=== PATIENT | female | born 1975 | race Caucasian/White ===

== ENCOUNTER → 2017-12-12 | Outpatient (CLI) | payer BC ==
[~2017-12-12] MED LIST: IOHEXOL 300 MG/ML 100ML VIAL. IV
== END | disposition home or self-care (01) ==
LOC: CT 12:06
DX: J18.1 Lobar pneumonia, unspecified organism (principal); J90 Pleural effusion, not elsewhere classified
CPT/HCPCS: 71275

== ENCOUNTER 2017-12-13 06:51 | Inpatient (IN) | payer BC ==
[2017-12-13 07:27] LABS: ADD MAN DIFF? NO
[2017-12-13 07:29] LABS: BASO % 0 % (0-3); EOS % 0 % (0-3); HEMATOCRIT 27.5 % (36.0-47.0); HEMOGLOBIN 8.7 g/dL (12.0-15.5); LYMPH # 1.3 x10^3/uL (1.0-4.8); LYMPH % 12 % (24-48); MEAN CORPUSCULAR HEMOGLOBIN 24 pg (25-35); MEAN CORPUSCULAR HGB CONC 32 g/dL (31-37); MEAN CORPUSCULAR VOLUME 74 fL (79-100); MONO # 0.8 x10^3/uL (0.0-1.1); MONO % 7 % (0-9); NEUT # 8.6 x10^3uL (1.8-7.7); NEUT % 81 % (31-73); PLATELET COUNT 796 x10^3/uL (140-400); RED BLOOD COUNT 3.72 x10^6/uL (3.50-5.40); RED CELL DISTRIBUTION WIDTH 15.7 % (11.5-14.5); WHITE BLOOD COUNT 10.8 x10^3/uL (4.0-11.0)
[2017-12-13 07:40] LABS: INR 1.3 (0.8-1.1); PROTHROMBIN TIME PATIENT 15.7 SEC (11.7-14.0)
[2017-12-13] MEDS ORDERED: LIDOCAINE WITH 8.4% SOD BICARB 3 ML DISP.SYRIN. ×2 (08:03→09:06)
[2017-12-13] MEDS ORDERED: fentaNYL PF VIAL 100 MCG/2 ML VIAL ×2 (08:24→09:07)
[2017-12-13] MEDS: fentaNYL PF VIAL 100 MCG/2 ML VIAL IV ×2 (08:30→09:30)
[2017-12-13] MEDS: LIDOCAINE WITH 8.4% SOD BICARB 3 ML DISP.SYRIN. IJ ×2 (09:00→09:30)
[2017-12-13] MEDS ORDERED: MIDAZOLAM HCL/PF 2 MG/2 ML VIAL. (09:07)
[2017-12-13] MEDS: MIDAZOLAM HCL/PF 2 MG/2 ML VIAL. IV (09:30)
[2017-12-13 09:52] LABS: PH,BODY FLUID 6.64
[2017-12-13] MEDS: STERILE WATER IV (12:45)
[2017-12-13] MEDS: ALTEPLASE IV (12:45)
[2017-12-13] MEDS ORDERED: fentaNYL PF VIAL 100 MCG/2 ML VIAL IV (13:00)
[2017-12-13] MEDS ORDERED: traMADol 50 MG TABLET PO (13:45)
[2017-12-13] MEDS ORDERED: ACETAMINOPHEN 325 MG TABLET. PO (13:45)
[2017-12-13] MEDS ORDERED: hydrALAZINE 20 MG/ML VIAL. IVP (13:45)
[2017-12-13] MEDS ORDERED: MORPHINE SULFATE 4 MG/ML DISP.SYRIN. IV (13:45)
[2017-12-13] MEDS ORDERED: VANCOMYCIN 1.75 GM in IV DEXTROSE 5% 500 ML IV (13:45)
[2017-12-13] MEDS ORDERED: VANCOMYCIN PER PHARMACY MC (13:45)
[2017-12-13] MEDS ORDERED: ONDANSETRON PF 4 MG/2 ML VIAL. IV (13:45)
[2017-12-13] MEDS: KETOROLAC 15 MG/ML VIAL. IV ×3 (14:00→20:50)
[2017-12-13] MEDS ORDERED: VANCOMYCIN 2 GM in IV DEXTROSE 5 %-0.2 % NACL 500 ML IV (14:00)
[2017-12-13] MEDS: HYDROcodone/APAP 5/325MG 1 TAB TABLET PO (14:15)
[2017-12-13] MEDS: CETIRIZINE HCL 10 MG TABLET. PO (16:00)
[2017-12-13] MEDS ORDERED: ALBUTEROL SULFATE 2.5 MG/3 ML NEBU. NEB (16:00)
[2017-12-13] MEDS: DOCUSATE SODIUM 100 MG CAPSULE. PO (20:49)
[2017-12-13] MEDS: SERTRALINE 50 MG TABLET. PO (20:49)
[2017-12-13] MEDS: GABAPENTIN 400 MG CAPSULE. PO (20:49)
[2017-12-13] MEDS: oxyCODONE/APAP 5/325 1 TAB TABLET PO (20:51)
[2017-12-13] MEDS: HEPARIN PF for SUB-Q USE 5,000 UNIT/0.5 ML VIAL. SQ (22:36)
[2017-12-14 03:32] LABS: ADD MAN DIFF? NO
[2017-12-14 04:24] LABS: BASO % 0 % (0-3); EOS # 0.1 x10^3/uL (0.0-0.7); EOS % 1 % (0-3); HEMATOCRIT 25.9 % (36.0-47.0); HEMOGLOBIN 8.2 g/dL (12.0-15.5); LYMPH # 1.4 x10^3/uL (1.0-4.8); LYMPH % 18 % (24-48); MEAN CORPUSCULAR HEMOGLOBIN 24 pg (25-35); MEAN CORPUSCULAR HGB CONC 32 g/dL (31-37); MEAN CORPUSCULAR VOLUME 74 fL (79-100); MONO # 0.8 x10^3/uL (0.0-1.1); MONO % 10 % (0-9); NEUT # 5.5 x10^3uL (1.8-7.7); NEUT % 70 % (31-73); PLATELET COUNT 677 x10^3/uL (140-400); RED BLOOD COUNT 3.48 x10^6/uL (3.50-5.40); RED CELL DISTRIBUTION WIDTH 15.6 % (11.5-14.5); WHITE BLOOD COUNT 7.8 x10^3/uL (4.0-11.0)
[2017-12-14 04:58] LABS: ANION GAP 6 (6-14); BLOOD UREA NITROGEN 8 mg/dL (7-20); CALCIUM 9.2 mg/dL (8.5-10.1); CARBON DIOXIDE 29 mmol/L (21-32); CHLORIDE 101 mmol/L (98-107); CREATININE 0.6 mg/dL (0.6-1.0); GFR 108.6; GLUCOSE 103 mg/dL (70-99); POTASSIUM 4.2 mmol/L (3.5-5.1); SODIUM 136 mmol/L (136-145)
[2017-12-14] MEDS: KETOROLAC 15 MG/ML VIAL. IV ×3 (06:27→21:05)
[2017-12-14] MEDS: HEPARIN PF for SUB-Q USE 5,000 UNIT/0.5 ML VIAL. SQ ×3 (06:38→21:12)
[2017-12-14] MEDS: HYDROcodone/APAP 5/325MG 1 TAB TABLET PO ×3 (06:39→14:42)
[2017-12-14] MEDS: GADOBUTROL 7.5 MMOL/7.5 ML VIAL IV (10:03)
[2017-12-14] MEDS: CETIRIZINE HCL 10 MG TABLET. PO (10:28)
[2017-12-14] MEDS: ALTEPLASE IV (11:15)
[2017-12-14] MEDS: STERILE WATER IV (11:15)
[2017-12-14 13:20] LABS: BODY FLUID LDH 11426 IU/L (.)
[2017-12-14 13:20] LABS: BODY FLUID GLUCOSE <2 mg/dL (.)
[2017-12-14] MEDS ORDERED: cefTRIAXone SODIUM 2 GM in IV DEXTROSE 5% 100 ML IV (15:30)
[2017-12-14 16:12] LABS: ALBUMIN 1.9 g/dL (3.4-5.0); ALK PHOS 149 U/L (46-116); ALT (SGPT) 11 U/L (14-59); AST (SGOT) 10 U/L (15-37); DIRECT BILIRUBIN < 0.1 mg/dL (0.0-0.2); TOTAL BILIRUBIN 0.2 mg/dL (0.2-1.0); TOTAL PROTEIN 6.4 g/dL (6.4-8.2)
[2017-12-14 17:13] LABS: SEDIMENTATION RATE 117 (0-25)
[2017-12-14] MEDS: cefTRIAXone IV Push 2 GM VIAL. IVP (17:21)
[2017-12-14] MEDS: GABAPENTIN 400 MG CAPSULE. PO (21:03)
[2017-12-14] MEDS: SERTRALINE 50 MG TABLET. PO (21:03)
[2017-12-14] MEDS: DOCUSATE SODIUM 100 MG CAPSULE. PO (21:03)
[2017-12-14] MEDS: LACTOBACILLUS RHAMNOSUS GG 1 CAPSULE. PO (21:04)
[2017-12-14] MEDS: oxyCODONE/APAP 5/325 1 TAB TABLET PO (21:04)
[2017-12-15 04:40] LABS: ADD MAN DIFF? NO
[2017-12-15 05:38] LABS: BASO % 0 % (0-3); EOS # 0.2 x10^3/uL (0.0-0.7); EOS % 4 % (0-3); HEMATOCRIT 24.5 % (36.0-47.0); HEMOGLOBIN 7.8 g/dL (12.0-15.5); LYMPH # 1.3 x10^3/uL (1.0-4.8); LYMPH % 21 % (24-48); MEAN CORPUSCULAR HEMOGLOBIN 24 pg (25-35); MEAN CORPUSCULAR HGB CONC 32 g/dL (31-37); MEAN CORPUSCULAR VOLUME 74 fL (79-100); MONO # 0.6 x10^3/uL (0.0-1.1); MONO % 10 % (0-9); NEUT # 4.1 x10^3uL (1.8-7.7); NEUT % 64 % (31-73); PLATELET COUNT 679 x10^3/uL (140-400); RED BLOOD COUNT 3.29 x10^6/uL (3.50-5.40); RED CELL DISTRIBUTION WIDTH 15.5 % (11.5-14.5); WHITE BLOOD COUNT 6.4 x10^3/uL (4.0-11.0)
[2017-12-15 06:04] LABS: ANION GAP 9 (6-14); BLOOD UREA NITROGEN 5 mg/dL (7-20); CALCIUM 9.2 mg/dL (8.5-10.1); CARBON DIOXIDE 29 mmol/L (21-32); CHLORIDE 100 mmol/L (98-107); CREATININE 0.6 mg/dL (0.6-1.0); GFR 108.6; GLUCOSE 111 mg/dL (70-99); POTASSIUM 3.9 mmol/L (3.5-5.1); SODIUM 138 mmol/L (136-145)
[2017-12-15] MEDS: KETOROLAC 15 MG/ML VIAL. IV ×3 (06:08→21:28)
[2017-12-15] MEDS: HEPARIN PF for SUB-Q USE 5,000 UNIT/0.5 ML VIAL. SQ ×3 (06:12→21:43)
[2017-12-15] MEDS: HYDROcodone/APAP 5/325MG 1 TAB TABLET PO ×3 (06:36→19:56)
[2017-12-15] MEDS: LACTOBACILLUS RHAMNOSUS GG 1 CAPSULE. PO ×2 (09:09→21:27)
[2017-12-15] MEDS: CETIRIZINE HCL 10 MG TABLET. PO (09:09)
[2017-12-15] MEDS: ceFAZolin SODIUM 2 GM in IV DEXTROSE 5% 50 ML IV ×3 (09:19→22:42)
[2017-12-15] MEDS ORDERED: SODIUM CHLORIDE 0.65% NASAL SPRAY 45ML BOTTLE. NS (11:00)
[2017-12-15] MEDS: SERTRALINE 50 MG TABLET. PO (21:28)
[2017-12-15] MEDS: GABAPENTIN 400 MG CAPSULE. PO (21:28)
[2017-12-16 04:32] LABS: ADD MAN DIFF? NO
[2017-12-16 05:08] LABS: BASO % 0 % (0-3); EOS # 0.4 x10^3/uL (0.0-0.7); EOS % 6 % (0-3); HEMATOCRIT 25.3 % (36.0-47.0); HEMOGLOBIN 8.1 g/dL (12.0-15.5); LYMPH # 1.9 x10^3/uL (1.0-4.8); LYMPH % 28 % (24-48); MEAN CORPUSCULAR HEMOGLOBIN 24 pg (25-35); MEAN CORPUSCULAR HGB CONC 32 g/dL (31-37); MEAN CORPUSCULAR VOLUME 74 fL (79-100); MONO # 0.6 x10^3/uL (0.0-1.1); MONO % 10 % (0-9); NEUT # 3.8 x10^3uL (1.8-7.7); NEUT % 56 % (31-73); PLATELET COUNT 716 x10^3/uL (140-400); RED BLOOD COUNT 3.42 x10^6/uL (3.50-5.40); WHITE BLOOD COUNT 6.7 x10^3/uL (4.0-11.0)
[2017-12-16 05:54] LABS: ANION GAP 8 (6-14); BLOOD UREA NITROGEN 5 mg/dL (7-20); CALCIUM 9.2 mg/dL (8.5-10.1); CARBON DIOXIDE 29 mmol/L (21-32); CHLORIDE 102 mmol/L (98-107); CREATININE 0.8 mg/dL (0.6-1.0); GFR 77.9; GLUCOSE 108 mg/dL (70-99); SODIUM 139 mmol/L (136-145)
[2017-12-16] MEDS: KETOROLAC 15 MG/ML VIAL. IV (06:19)
[2017-12-16] MEDS: ceFAZolin SODIUM 2 GM in IV DEXTROSE 5% 50 ML IV ×3 (06:20→21:08)
[2017-12-16] MEDS: HEPARIN PF for SUB-Q USE 5,000 UNIT/0.5 ML VIAL. SQ ×3 (06:26→21:16)
[2017-12-16] MEDS: HYDROcodone/APAP 5/325MG 1 TAB TABLET PO ×4 (06:28→21:08)
[2017-12-16] MEDS: CETIRIZINE HCL 10 MG TABLET. PO (08:06)
[2017-12-16] MEDS: LACTOBACILLUS RHAMNOSUS GG 1 CAPSULE. PO ×2 (08:06→21:05)
[2017-12-16] MEDS ORDERED: HYDROcodone/APAP 5/325MG 1 TAB TABLET PO (11:45)
[2017-12-16] MEDS: DOCUSATE SODIUM 100 MG CAPSULE. PO (18:04)
[2017-12-16] MEDS: GABAPENTIN 400 MG CAPSULE. PO (21:05)
[2017-12-16] MEDS: SERTRALINE 50 MG TABLET. PO (21:05)
[2017-12-17] MEDS: HYDROcodone/APAP 5/325MG 1 TAB TABLET PO ×4 (04:15→21:25)
[2017-12-17 04:31] LABS: ADD MAN DIFF? NO
[2017-12-17 04:59] LABS: ANION GAP 8 (6-14); BLOOD UREA NITROGEN 5 mg/dL (7-20); CALCIUM 9.3 mg/dL (8.5-10.1); CARBON DIOXIDE 31 mmol/L (21-32); CHLORIDE 101 mmol/L (98-107); CREATININE 0.8 mg/dL (0.6-1.0); GFR 77.9; GLUCOSE 92 mg/dL (70-99); POTASSIUM 3.9 mmol/L (3.5-5.1); SODIUM 140 mmol/L (136-145)
[2017-12-17 05:10] LABS: BASO % 0 % (0-3); EOS # 0.5 x10^3/uL (0.0-0.7); EOS % 7 % (0-3); HEMATOCRIT 27.9 % (36.0-47.0); HEMOGLOBIN 8.8 g/dL (12.0-15.5); LYMPH % 28 % (24-48); MEAN CORPUSCULAR HEMOGLOBIN 24 pg (25-35); MEAN CORPUSCULAR HGB CONC 31 g/dL (31-37); MEAN CORPUSCULAR VOLUME 75 fL (79-100); MONO # 0.5 x10^3/uL (0.0-1.1); MONO % 7 % (0-9); NEUT # 4.1 x10^3uL (1.8-7.7); NEUT % 58 % (31-73); PLATELET COUNT 835 x10^3/uL (140-400); RED BLOOD COUNT 3.73 x10^6/uL (3.50-5.40); RED CELL DISTRIBUTION WIDTH 16.3 % (11.5-14.5); WHITE BLOOD COUNT 7.2 x10^3/uL (4.0-11.0)
[2017-12-17] MEDS: ceFAZolin SODIUM 2 GM in IV DEXTROSE 5% 50 ML IV ×3 (06:17→21:25)
[2017-12-17] MEDS: HEPARIN PF for SUB-Q USE 5,000 UNIT/0.5 ML VIAL. SQ ×3 (06:27→21:33)
[2017-12-17] MEDS: LACTOBACILLUS RHAMNOSUS GG 1 CAPSULE. PO ×2 (08:39→20:28)
[2017-12-17] MEDS: POLYETHYLENE GLYCOL 3350 17 GM PACKET. PO (08:39)
[2017-12-17] MEDS: CETIRIZINE HCL 10 MG TABLET. PO (08:39)
[2017-12-17] MEDS: FERROUS SULFATE 325 MG TABLET. PO (08:39)
[2017-12-17] MEDS: DOCUSATE SODIUM 100 MG CAPSULE. PO (08:39)
[2017-12-17] MEDS: NYSTATIN 100,000 UNITS/ML 5 ML ORAL.SUSP. SWSW ×4 (10:20→21:21)
[2017-12-17 10:26] LABS: POLYCHROMASIA SLIGHT
[2017-12-17 10:27] LABS: ANISOCYTOSIS SLIGHT; HYPOCHROMIA SLIGHT; MICROCYTOSIS MOD; OVALOCYTES FEW
[2017-12-17 10:28] LABS: PLT ESTIMATE INCREASED (ADEQUATE)
[2017-12-17] MEDS: GABAPENTIN 400 MG CAPSULE. PO (20:27)
[2017-12-17] MEDS: SERTRALINE 50 MG TABLET. PO (20:28)
[2017-12-18 05:03] LABS: ADD MAN DIFF? NO
[2017-12-18 05:20] LABS: BASO % 0 % (0-3); EOS # 0.5 x10^3/uL (0.0-0.7); EOS % 7 % (0-3); HEMATOCRIT 27.2 % (36.0-47.0); HEMOGLOBIN 8.6 g/dL (12.0-15.5); LYMPH # 1.7 x10^3/uL (1.0-4.8); LYMPH % 24 % (24-48); MEAN CORPUSCULAR HEMOGLOBIN 24 pg (25-35); MEAN CORPUSCULAR HGB CONC 32 g/dL (31-37); MEAN CORPUSCULAR VOLUME 75 fL (79-100); MONO # 0.6 x10^3/uL (0.0-1.1); MONO % 7 % (0-9); NEUT # 4.6 x10^3uL (1.8-7.7); NEUT % 62 % (31-73); PLATELET COUNT 699 x10^3/uL (140-400); RED BLOOD COUNT 3.63 x10^6/uL (3.50-5.40); RED CELL DISTRIBUTION WIDTH 16.1 % (11.5-14.5); WHITE BLOOD COUNT 7.4 x10^3/uL (4.0-11.0)
[2017-12-18] MEDS: ceFAZolin SODIUM 2 GM in IV DEXTROSE 5% 50 ML IV ×2 (05:20→14:41)
[2017-12-18] MEDS: HEPARIN PF for SUB-Q USE 5,000 UNIT/0.5 ML VIAL. SQ ×2 (05:22→14:43)
[2017-12-18 05:42] LABS: ANION GAP 7 (6-14); BLOOD UREA NITROGEN 5 mg/dL (7-20); CALCIUM 9.3 mg/dL (8.5-10.1); CARBON DIOXIDE 30 mmol/L (21-32); CHLORIDE 101 mmol/L (98-107); CREATININE 0.8 mg/dL (0.6-1.0); GFR 77.9; GLUCOSE 89 mg/dL (70-99); POTASSIUM 4.1 mmol/L (3.5-5.1); SODIUM 138 mmol/L (136-145)
[2017-12-18] MEDS: HYDROcodone/APAP 5/325MG 1 TAB TABLET PO ×3 (06:04→16:56)
[2017-12-18] MEDS ORDERED: LIDOCAINE WITH 8.4% SOD BICARB 3 ML DISP.SYRIN. (09:27)
[2017-12-18] MEDS: LIDOCAINE WITH 8.4% SOD BICARB 3 ML DISP.SYRIN. INJ (09:58)
[2017-12-18] MEDS: DOCUSATE SODIUM 100 MG CAPSULE. PO (10:47)
[2017-12-18] MEDS: FERROUS SULFATE 325 MG TABLET. PO (10:47)
[2017-12-18] MEDS: CETIRIZINE HCL 10 MG TABLET. PO (10:47)
[2017-12-18] MEDS: LACTOBACILLUS RHAMNOSUS GG 1 CAPSULE. PO (10:47)
[2017-12-18] MEDS: POLYETHYLENE GLYCOL 3350 17 GM PACKET. PO (10:48)
[2017-12-18] MEDS: NYSTATIN 100,000 UNITS/ML 5 ML ORAL.SUSP. SWSW ×3 (10:48→16:56)
== END 2017-12-18 17:35 | disposition home health service (06) | DRG 539 ==
LOC: INTRAD 06:51 → 2 NORTH 09:41
PROC: 0W9930Z Drainage of Right Pleural Cavity with Drainage Device, Percutaneous Approach (ICD-10-PCS; principal; 2017-12-13)
PROC: 3E03317 Introduction of Other Thrombolytic into Peripheral Vein, Percutaneous Approach (ICD-10-PCS; 2017-12-14)
PROC: 02HV33Z Insertion of Infusion Device into Superior Vena Cava, Percutaneous Approach (ICD-10-PCS; 2017-12-18)
PROC: B548ZZA Ultrasonography of Superior Vena Cava, Guidance (ICD-10-PCS; 2017-12-18)
DX: M46.24 Osteomyelitis of vertebra, thoracic region (principal); E43 Unspecified severe protein-calorie malnutrition; I26.99 Other pulmonary embolism without acute cor pulmonale; J86.9 Pyothorax without fistula; J18.9 Pneumonia, unspecified organism; J90 Pleural effusion, not elsewhere classified; M46.44 Discitis, unspecified, thoracic region; D64.9 Anemia, unspecified; F41.9 Anxiety disorder, unspecified; R06.03 Acute respiratory distress; M48.00 Spinal stenosis, site unspecified; Z88.0 Allergy status to penicillin; Z88.1 Allergy status to other antibiotic agents; Z90.710 Acquired absence of both cervix and uterus; Z90.49 Acquired absence of other specified parts of digestive tract; Z68.25 Body mass index [BMI] 25.0-25.9, adult
CPT/HCPCS: 32555; 32557; 36415; 36569; 71045; 71250; 71275; 72157; 76937; 77001; 80048; 80076; 82945; 83615; 83986; 84157; 85025; 85610; 85651; 87071; 87075; 87186; 87205; 88112; 88305; 93971; 99152; 99153; A4215; A9585; C1751; C1892; G0238; J0690; J0696; J1644; J1885; J1956; J2020; J2250; J2997; J3010

== ENCOUNTER → 2018-06-05 | Outpatient (CLI) | payer BC ==
[2017-12-18 15:17] VITALS: BP 110/73
[~2018-06-05] MED LIST changes: +ALBU2.5V5 NEB; +ASCO250T2 PO; +CETI10CA PO; +FERR325T14 PO; +FERR325T72 PO; +GABA-587 PO; +HYDR-2758 PO; -IOHEXOL 300 MG/ML 100ML VIAL. IV; +LACT1CAP19 PO; +LEVO500T59 PO; +NYST100054 SWSW; +SERT50TA PO; +TRAM50TA PO
--- NOTE | 2018-06-05 15:28 | RAD ---
EXAM: Chest, 2 views. HISTORY: Right-sided chest pain. Shortness of air. Empyema. COMPARISON: CT dated 12/15/2017. FINDINGS: Frontal and lateral views the chest are obtained. There is no infiltrate, pleural effusion or pneumothorax. The heart is normal in size. There is anterior wedging of T9 and T10 with severe endplate irregularity due to the sequela of osteomyelitis/discitis. IMPRESSION: 1. No acute thoracic finding. 2. Findings consistent with discitis/osteomyelitis at T9-T10, better characterized on the prior MRI dated 12/14/2017. Electronically signed by: Mary Richardson MD (06/05/2018 3:25 PM) [place] [id number]
== END | disposition home or self-care (01) ==
LOC: RAD 14:18
PROVIDERS: ATTEND Internal Medicine Critical Care Medicine
DX: M46.24 Osteomyelitis of vertebra, thoracic region (principal); J43.9 Emphysema, unspecified; Z86.2 Personal history of diseases of the blood and blood-forming organs and certain disorders involving the immune mechanism; Z90.49 Acquired absence of other specified parts of digestive tract; Z90.710 Acquired absence of both cervix and uterus; Z88.0 Allergy status to penicillin; Z88.1 Allergy status to other antibiotic agents; Z82.49 Family history of ischemic heart disease and other diseases of the circulatory system
CPT/HCPCS: 71046